=== PATIENT | male | born 2000 | race American Indian/Alaskan Native ===

== ENCOUNTER 2021-11-08 22:38 | Emergency (ER) | payer OTHER ==
[~2021-11-08] VITALS: Ht 170.2 cm; Wt 104.3 kg
[2021-11-08] MEDS ORDERED: RELION NOV100 UNIT/2 SUB-Q (23:05)
--- NOTE | 2021-11-09 17:47 | EKG ---
[facility] [address] [place], [place] [address] Signed Normal sinus rhythm Rightward axis Inferior infarct , age undetermined Abnormal ECG No previous ECGs available Confirmed by IMER ZHANG DO ([id number]) on 11/09/2021 5:47:15 PM Electronically Signed By: IMER ZHANG DO 11/09/21 1747 PATIENT NAME: TANA LEONARDO Electrocardiogram DATE OF : [birth year] PHYSICIAN: IMER ZHANG DO REPORT #: [id number] REPORT IS CONFIDENTIAL AND NOT TO BE RELEASED WITHOUT AUTHORIZATION
== END 2021-11-09 00:17 | disposition home or self-care (01) ==
LOC: ED 22:38
DX: R00.2 Palpitations (principal); Z79.4 Long term (current) use of insulin
CPT/HCPCS: 71045; 80048; 83735; 85025; 93005; 93010; 99285-25